=== PATIENT | male | born 1955 | race Caucasian/White ===

== ENCOUNTER 2024-09-04 15:27 | Observation (INO) | payer MEDICARE ==
[~2024-09-04] VITALS: Ht 177.8 cm; Wt 79.9 kg
[2024-09-04] MEDS ORDERED: SODIUM CHLORIDE 0.9% 1,000 ML IV ONE (16:15)
[2024-09-04 16:20] LABS: BASOPHILS 0.3 % (0-2); EOSINOPHILS 2.2 % (0-6); HEMATOCRIT 46.9 % (35.0-50.0); HEMOGLOBIN 15.6 g/dL (12.0-18.0); LYMPHOCYTES 20.5 % (24-44); MCH 28.7 (27-36); MCHC 33.3 g/dl (30-36); MCV 86.3 fl (81-99); MONOCYTES 9.1 % (0-12); NEUTROPHILS 67.9 % (39-80); PLATELET COUNT 173 K/uL (140-440); RBC 5.44 M/ul (4.3-5.7); RDW 14.7 (10.5-15.0)
[2024-09-04 16:48] LABS: ALBUMIN 3.1 g/dL (3.4-5.0); ALBUMIN/GLOBULIN RATIO 0.74 (1.1-2.4); ALCOHOL, MEDICAL <3 ng/dL (<3); ALKALINE PHOSPHATASE 89 U/L (46-116); ALT (SGPT) 25 U/L (14-59); ANION GAP 16.3 (7-21); AST (SGOT) 19 U/L (15-37); BILIRUBIN, TOTAL 0.4 mg/dL (0.2-1.0); BUN/CREATININE RATIO 11.18 (6.0-28.6); CALCIUM 8.7 mg/dL (8.5-10.1); CARBON DIOXIDE 26 mmol/L (21-32); CHLORIDE 100 mmol/L (98-107); CREATININE, SERUM 1.52 mg/dL (0.70-1.30); GLOMERULAR FILTRATION RATE,EST 49 mL/min (>60); POTASSIUM 4.3 mmol/L (3.5-5.1); PROTEIN, TOTAL 7.3 g/dL (6.4-8.2); UREA NITROGEN 17 mg/dL (7-18)
[2024-09-04 17:05] LABS: BILIRUBIN, URINE NEGATIVE (negative); BLOOD/HGB, URINE NEGATIVE (Negative); KETONE, URINE NEGATIVE (Negative); LEUK ESTERASE, URINE NEGATIVE (negative); NITRITE, URINE NEGATIVE (negative); PH, URINE 5.5 (5-7)
[2024-09-04 17:21] LABS: AMPHETAMINES, URINE NEGATIVE (NEGATIVE); BARBITURATES, URINE NEGATIVE (NEGATIVE); BENZODIAZEPINE, URINE NEGATIVE (NEGATIVE); BUPRENORPHINE, URINE NEGATIVE (NEGATIVE); CANNABINOID, URINE NEGATIVE (NEGATIVE); COCAINE, URINE NEGATIVE (NEGATIVE); ECSTASY, URINE NEGATIVE (NEGATIVE); FENTANYL, URINE NEGATIVE (NEGATIVE); METHADONE, URINE NEGATIVE (NEGATIVE); OPIATES, URINE NEGATIVE (NEGATIVE); OXYCODONE, URINE POSITIVE (NEGATIVE); PHENCYCLIDINE, URINE NEGATIVE (NEGATIVE)
[2024-09-04] MEDS ORDERED: ZOLPIDEM TARTRA10 MG PO (17:26)
[2024-09-04] MEDS ORDERED: XARELTO20 MG PO (17:28)
[2024-09-04] MEDS ORDERED: AZITHROMYCIN 250 MG TAB PO SCH (17:45)
[2024-09-04] MEDS ORDERED: CEFTRIAXONE SODIUM 1 GM in SODIUM CHLORIDE 0.9% 100 ML IV SCH (17:45)
[2024-09-04 18:33] VITALS: BP 155/94
[2024-09-04] MEDS ORDERED: CEFTRIAXONE SODIUM 1 GM VIAL IV ONE (18:42)
[2024-09-04] MEDS ORDERED: ZOLPIDEM TARTRATE 5 MG TAB PO PRN (20:00)
[2024-09-04 20:44] VITALS: BP 154/92
[2024-09-04] MEDS ORDERED: Rivaroxaban 10 MG TAB PO SCH (21:00)
[2024-09-04] MEDS ORDERED: LIPITOR40 MG PO (21:09)
[2024-09-04] MEDS ORDERED: FINASTERIDE5 MG PO (21:13)
[2024-09-04 21:48] VITALS: BP 154/92
[2024-09-04] MEDS ORDERED: PEPCID20 MG PO (21:49)
[2024-09-05] MEDS ORDERED: OMEPRAZOLE20 MG (00:19)
[2024-09-05] MEDS ORDERED: TAGRISSO80 MG PO (00:21)
[2024-09-05] MEDS ORDERED: ACETAMINOPHEN 500 MG TAB PO PRN ×2 (00:30→09:45)
[2024-09-05] MEDS ORDERED: TYLENOL EXTRA500 MG PO (00:36)
[2024-09-05] MEDS ORDERED: LOSARTAN POTASS50 MG PO (00:59)
[2024-09-05] MEDS ORDERED: OXYCODONE HCL5 MG PO (01:00)
[2024-09-05 02:59] VITALS: BP 121/88
[2024-09-05 05:29] VITALS: BP 126/77
[2024-09-05 05:47] LABS: BASOPHILS 0.4 % (0-2); EOSINOPHILS 4.6 % (0-6); HEMATOCRIT 41.3 % (35.0-50.0); HEMOGLOBIN 14.1 g/dL (12.0-18.0); LYMPHOCYTES 16.1 % (24-44); MCH 29.1 (27-36); MCHC 34.2 g/dl (30-36); MCV 85.3 fl (81-99); MONOCYTES 10.7 % (0-12); NEUTROPHILS 68.2 % (39-80); PLATELET COUNT 141 K/uL (140-440); RBC 4.84 M/ul (4.3-5.7); RDW 14.7 (10.5-15.0)
[2024-09-05 06:01] LABS: ANION GAP 12.4 (7-21); BUN/CREATININE RATIO 8.16 (6.0-28.6); CALCIUM 8.7 mg/dL (8.5-10.1); CHOLESTEROL/HDL RATIO 3.7; CREATININE, SERUM 1.47 mg/dL (0.70-1.30); MAGNESIUM 1.8 mg/dL (1.8-2.4); POTASSIUM 4.4 mmol/L (3.5-5.1)
[2024-09-05] MEDS ORDERED: OXYCODONE HCL 5 MG TAB PO PRN (07:30)
[2024-09-05] MEDS ORDERED: CEFTRIAXONE SODIUM 1 GM VIAL IV ONE (08:08)
[2024-09-05] MEDS ORDERED: PANTOPRAZOLE SODIUM 40 MG TABEC PO SCH (09:00)
[2024-09-05] MEDS ORDERED: FINASTERIDE 5 MG TAB PO SCH (09:00)
[2024-09-05] MEDS ORDERED: ATORVASTATIN 40 MG TAB PO SCH (09:00)
[2024-09-05 09:16] VITALS: BP 126/78
[2024-09-05 10:09] VITALS: BP 126/78
[2024-09-05] MEDS ORDERED: PHARMACY RENAL DOSE ADJUSTMENT 1 DOSE MISC PO SCH (12:00)
[2024-09-05 13:44] VITALS: BP 127/80
[2024-09-05 14:03] VITALS: BP 133/82
[2024-09-05] MEDS ORDERED: FAMOTIDINE 20 MG TAB PO SCH (21:00)
--- NOTE | 2024-09-06 21:07 | EKG ---
[facility] [address] [facility] [place] [address] Signed Normal sinus rhythm Possible Inferior infarct , age undetermined Abnormal ECG No previous ECGs available Confirmed by Iain Toro MD ([id number]) on 09/06/2024 9:07:10 PM Electronically Signed By: IAIN TORO MD [id number] PATIENT NAME: NATASAH RUDOLPH Electrocardiogram DATE OF : 51 PHYSICIAN: IAIN TORO MD REPORT #: [id number] REPORT IS CONFIDENTIAL AND NOT TO BE RELEASED WITHOUT AUTHORIZATION
== END 2024-09-05 14:15 | disposition home or self-care (01) ==
LOC: ED 15:27 → MS 15:29
PROVIDERS: Emergency Medicine; ADMIT Student in an Organized Health Care Education/Training Program; ATTEND Student in an Organized Health Care Education/Training Program
DX: I63.9 Cerebral infarction, unspecified (principal); C34.90 Malignant neoplasm of unspecified part of unspecified bronchus or lung; Z79.899 Other long term (current) drug therapy
CPT/HCPCS: 36415; 70450; 70496; 70498; 70551; 71045; 80048; 80053; 80061; 80307; 81003; 83036; 83735; 84484; 85025; 93005; 93010; 93306; 96374; 96376; 99285-25; A9270; G0378; G0480; J0696; J7030; Q9967